=== PATIENT | female | born 1950 | race Caucasian/White ===

== ENCOUNTER 2016-08-15 10:55 | Inpatient (IN) ==
--- NOTE | 2016-08-15 11:35 | ED EKG INTERP ---
EKG Interpretation - EKG Time of EKG reading by physician:: 11:15 EKG Read and Signed by:: Jace Whitehead EKG Interpretation (*Must complete 3 of following elements*): Normal Rate: 79 Rhythm: normal sinus rhythm Comments: normal ECG Attestation - Scribe Verification/Attestation Scribe:: Tracy Medrano Acting as Scribe for:: Jace Whitehead Scribe documention review:: This chart was documented by a scribe and accurately reflects the service the provider performed and the decisions made by the provider.
--- NOTE | 2016-08-15 12:05 | PROVIDER DOCUMENTATION ---
HPI-Syncope/Dizziness - General Source: patient - History of Present Illness-Syncope/Dizzy Prior Episodes: reports: recent history Onset/Duration: reports: other (one month) Timing: reports: still present, intermittent Position/Activity at time of episode: reports: sitting, standing Symptoms prior to episode: reports: racing heart, confusion. denies: headache, lightheaded, visual disturbance, nausea/vomiting, chest pain, abdominal pain, back pain, diaphoresis, injury, recent head trauma, rapid heart beat Context: reports: almost passed out, other (dizzy). denies: lost consciousness , became unresponsive, collapsed, felt faint, confused after event, incontinent of urine, incontinent of stool, breathing shallow, breathing stopped, lost pulse , seizure activity observed, low blood sugar Loss of Consciousness: no loss of consciousness Location of injury. (If syncope resulted in an injury.): reports: none Current Symptoms: reports: chest pain, shoulder pain (bilateral), dizzy, pale. denies: fever, chills, sweaty, breathing difficulty, short of breath, abdominal pain, nausea, vomiting, arm pain, weakness, lightheaded, headache, weak pulse, headache, blurred vision, lightheaded Recently Seen Here or By Another Healthcare Provider: No - Dizziness Severity in ED: reports: mild Dizziness Related Current/Associated Symptoms: reports: dizzy, pale. denies: nausea/vomiting, weakness, lightheaded, headache, weak pulse, headache, blurred vision, lightheaded, hearing loss, ringing/roaring in ears, earache, sense of spinning, sense of falling, syncope, sense of confusion, off balance, cannot walk, cannot stand, unable to sit up, chronic dizziness Any recent trauma/injury?: reports: none Modifying Factors: improves with: nothing Patient usually:: reports: walks without assistance <Tracy Medrano - Last Filed: 08/15/16 14:31> <Jace Whitehead I - Last Filed: 08/15/16 14:41> - General Chief Complaint: Weakness Stated Complaint: SYNCOPE Time Seen by Provider: 08/15/16 11:47 Allergies/Adverse Reactions: Patient Allergies Allergy/AdvReac Type Severity Reaction Status Date / Time vitamin E (d-alpha Allergy RASH Verified 08/15/16 11:17 tocopherol) Home Medications: Home Medication List Medication Instructions Recorded Confirmed Last Taken Type Desvenlafaxine Succinate [Pristiq] 1 tab DAILY 08/15/16 08/15/16 Unknown History Estrogens, Conjugated [Premarin] 0.625 mg PO DAILY 08/15/16 08/15/16 Unknown History Glyburide/Metformin HCl 1 tab BID 08/15/16 08/15/16 Unknown History [Glyburide-Metformin 5-500 mg] Meclizine HCl [Antivert] 25 mg PRN 08/15/16 Unknown History Pravastatin Sodium 40 mg DAILY 08/15/16 08/15/16 Unknown History Telmisartan/Hydrochlorothiazid 1 tab DAILY 08/15/16 08/15/16 Unknown History [Micardis Hct 80-12.5 mg Tablet] - History of Present Illness-Syncope/Dizzy Nature of Presenting Problem: Pt is 65 y/o F presents to the ED with dizziness. Pt states having symptoms for one month. Pt states recently seeing PCP. Pt states PCP prescribed Pt with meds for dizziness. Pt states the meds help sometimes. Pt states when she sits down from being dizzy she feels like her heart is racing. Pt states hx of HTN. (Tracy Medrano) Review of Systems - Adult - REVIEW OF SYSTEMS - ADULT Constitutional: denies: chills, fever Eyes: denies: blurred vision, double vision Ears, Nose, Mouth & Throat: denies: ear pain, nose pain, throat pain Cardiovascular: reports: chest pain. denies: heart murmur, irregular heart rate Respiratory: denies: cough, shortness of breath, wheezing Gastrointestinal: denies: abdominal pain, diarrhea, nausea, vomiting Genitourinary: denies: dysuria, hematuria Musculoskeletal: reports: other (bilateral shoulder pain). denies: bone pain, joint pain, neck pain Integumentary: denies: hives, itching Neurological: reports: dizziness/vertigo (dizziness), slurred speech. denies: headache/migraines, syncope Psychiatric: reports: no symptoms reported Endocrine: reports: no symptoms reported Hematologic/Lymphatic: reports: no symptoms reported Allergic/Immunologic: reports: no symptoms reported All Other Systems: Reviewed and Negative <Tracy Medrano - Last Filed: 08/15/16 14:31> Past History - Adult - PAST MEDICAL HISTORY-ADULT Review of Records: reports: Nursing Assessment Review, Medications Reviewed, Social history reviewed & non-contributory. Major Childhood Illnesses: reports: denies history Cardiovascular: reports: HTN, hyperlipidemia Respiratory: reports: denies history Gastrointestinal: reports: denies history Obstetrical/Gynecological: reports: denies history Genitourinary: reports: denies history Musculoskeletal: reports: denies history Neurological: reports: denies history Psychiatric: reports: depression Endocrine/Immune: reports: Diabetes Other Conditions: reports: denies history - PRIOR SURGERIES/PROCEDURES Surgical/Procedure History: reports: hysterectomy, joint replacement (total knee ) - IMMUNIZATION STATUS Childhood Immunizations: See Nurse Assessment Flu Vaccine: See Nurse Assessment - FAMILY HISTORY Family History: reviewed, not pertinent - SOCIAL HISTORY Smoking: denies Substance Use: denies Living Situation: family <Tracy Medrano - Last Filed: 08/15/16 14:31> Physical Exam-General - PHYSICAL EXAM-ADULT Initial Vital Signs Reviewed: Yes - CONSTITUTIONAL General Appearance: alert, no apparent distress. negative: appears well (ill in appearance) - EYES Eyes: PERRL/EOMI, fundi clear, no AV nicking, pale conjunctivae - HEAD, EARS, NOSE, MOUTH & THROAT HENMT: normocephalic/atraumatic, moist mucous membranes, normal ENT inspection, TMs normal, pharynx normal - NECK Neck: non-tender, full range of motion, supple, normal inspection - RESPIRATORY Respiratory: chest non-tender, lungs clear, normal breath sounds, no pleuratic chest pain, no respiratory distress, no accessory muscle use - CARDIOVASCULAR Cardiovascular: normal peripheral pulses, regular rate, rhythm, no edema, no gallop, no JVD, no murmur - GASTROINTESTINAL (ABDOMEN) Abdominal Exam: normal bowel sounds, non tender, soft, no organomegaly, no pulsatile mass - LYMPHATIC Lymphatic: no adenopathy - MUSCULOSKELETAL Back Exam: normal inspection, no CVA tenderness, no vertebral tenderness Extremity: normal range of motion, non-tender, normal gait, normal inspection, no pedal edema, no calf tenderness, normal capillary refill, pelvis stable - SKIN Integumentary: normal turgor, warm/dry, pallor - NEUROLOGIC Neurologic: grossly normal, no motor/sensory deficits - PSYCHIATRIC Psych/Mental Status: normal mood/affect, oriented x 3 <Tracy Medrano - Last Filed: 08/15/16 14:31> Progress - REASSESSMENT Reassessment #1 Time Reassessed: 13:16 (Dr. Whitehead at bedside with Pt and Pt's family ) Status: unchanged (Dr. Whitehead talks to the Pt and Pt's family about Pt's labs and tells Pt about being admitted. Pt and Pt's family understands and agrees with the choice to admit.) - CONSULTS/PCP/HOSPITALIST Notification #1 *Consult/PCP/Hospitalist*: Dr. Jernigan Time Discussed: 14:11 (transfer to [facility] and admit through [facility] hospitalist ) Reason/Comments: Dr. Whitehead consults with Dr. Jernigan about Pt. Consult Disposition: other #2 Consult: Dr. Sainz Time Discussed: 14:32 (Dr. Sainz accepted admit of Pt ) Reason/Comments: Dr. Whitehead consults with Dr. Sainz about admit of Pt Consult Disposition: Admit <Tracy Medrano - Last Filed: 08/15/16 14:31> <Jace Whitehead I - Last Filed: 08/15/16 14:41> - PLAN OF CARE/RESULTS Progress/Plan/Lab Results: Orders Category Date Time Status Cardiac Monitoring DIRECTED Care 08/15/16 11:24 Active Oxygen Therapy- ED Nursing DIRECTED Care 08/15/16 11:24 Active Saline Loc NOW Care 08/15/16 11:24 Active CBC WITH ELECTRONIC DIFF [HEME] Stat Lab 08/15/16 11:24 Ordered CK PROFILE [SP CHEM] Stat Lab 08/15/16 11:24 Ordered COMPREHENSIVE METABOLIC PANEL [CHEM] Stat Lab 08/15/16 11:24 Ordered MAGNESIUM [CHEM] Stat Lab 08/15/16 11:24 Ordered PRO B-NATRIURETIC PEPTIDE Stat Lab 08/15/16 11:[address]IME WITH INR [address] [COAG] Stat Lab 08/15/16 11:[address] [COAG] Stat Lab 08/15/16 11:24 Ordered TROPONIN T Stat Lab 08/15/16 11:24 Ordered EKG [EKG] Stat Ther 08/15/16 11:24 Ordered Vital Signs - 24 hr 08/15/16 11:09 Temperature 97.5 F L Pulse Rate 94 H Respiratory 18 Rate Blood Pressure 123/65 O2 Sat by Pulse 98 Oximetry Laboratory Tests 08/15/16 08/15/16 08/15/16 12:05 12:05 12:05 WBC 1.92 L RBC 1.92 L Hgb 6.8 L Hct 20.2 L MCV 105.2 H MCH 35.4 H MCHC 33.7 RDW Std Deviation 15.7 H Plt Count 19 L* MPV 10.7 H Immature Gran % (Auto) 1.6 H Neut % (Auto) 13.6 L Lymph % (Auto) 70.8 H Terrell % (Auto) 13.0 H Eos % (Auto) 0.5 Baso % (Auto) 0.5 Immature Gran # (Auto) 0.03 Neut # (Auto) 0.26 L* Lymph # (Auto) 1.36 Terrell # (Auto) 0.25 Eos # (Auto) 0.01 Baso # (Auto) 0.01 PT INR APTT (Factor Assay) Sodium 134 L Potassium 4.2 Chloride 100 Carbon Dioxide 21 L Anion Gap 13 BUN 29 H Creatinine 1.3 H Estimated GFR/1.73 m2 41 BUN/Creatinine Ratio 22 Glucose 147 H Calculated Osmolality 277 Calcium 8.8 Magnesium 1.9 Total Bilirubin 0.40 AST 10 ALT 9 L Alkaline Phosphatase 105 H Creatine Kinase 65 Troponin T < 0.010 Total Protein 7.1 Albumin 3.9 Globulin 3.0 Albumin/Globulin Ratio 1.0 08/15/16 12:05 WBC RBC Hgb Hct MCV MCH MCHC RDW Std Deviation Plt Count MPV Immature Gran % (Auto) Neut % (Auto) Lymph % (Auto) Terrell % (Auto) Eos % (Auto) Baso % (Auto) Immature Gran # (Auto) Neut # (Auto) Lymph # (Auto) Terrell # (Auto) Eos # (Auto) Baso # (Auto) PT 13.8 INR 1.03 APTT (Factor Assay) 30.6 Sodium Potassium Chloride Carbon Dioxide Anion Gap BUN Creatinine Estimated GFR/1.73 m2 BUN/Creatinine Ratio Glucose Calculated Osmolality Calcium Magnesium Total Bilirubin AST ALT Alkaline Phosphatase Creatine Kinase Troponin T Total Protein Albumin Globulin Albumin/Globulin Ratio (Tracy Medrano) [address] Caban and Dr. Jernigan, who have accepted patient for transfer. (Jace Whitehead I) Departure <Tracy Medrano - Last Filed: 08/15/16 14:31> - Departure Time of Disposition Order: 14:40 Certified Medical Emergency: Emergent <Jace Whitehead I - Last Filed: 08/15/16 14:41> - Departure DIAGNOSIS: Pancytopenia Disposition: [facility] 02 Condition: Stable Referrals: Karthik Rojas MD [Primary Care Provider] - Attestation - Scribe Verification/Attestation Scribe:: Tracy Medrano Acting as Scribe for:: Jace Whitehead Scribe documention review:: This chart was documented by a scribe and accurately reflects the service the provider performed and the decisions made by the provider. <Tracy Medrano - Last Filed: 08/15/16 14:31> - Scribe Verification/Attestation Scribe:: Jace Whitehead I Scribe documention review:: This chart was documented by a scribe and accurately reflects the service the provider performed and the decisions made by the provider. - Physician/ ZACK Attestation Patient care was provided by Advanced Practice Provider:: Yes Advanced Practice Provider documentation review:: The Mid-level provider documentation, treatment plan and medical decision making was reviewed by the physician who agrees with all treatment and medical decision making by the MLP. The physician spent face to face time with patient:: Yes Advanced Practice Provider documentation review:: The physician spent face to face time with this patient and agrees with all MLP documentation, treatment, and medical decision making by the MLP. See provider notes for further information. <Jace Whitehead I - Last Filed: 08/15/16 14:41> Physician Attestation - Physician Attestation I, the provider, attest to the following statement:: Jace Whitehead Physician documentation Attestation:: This documentation recorded by the scribe accurately reflects the service I personally performed and the decisions made by me. <Jace Whitehead I - Last Filed: 08/15/16 14:41>
--- NOTE | 2016-08-15 12:23 | EKG Report ---
Test Performed on : 08/15/2016 11:15:44 AM Test Reason : CHEST PAIN Blood Pressure : / mmHG Vent. Rate : 079 BPM Atrial Rate : 079 BPM P-R Int : 164 ms QRS Dur : 088 ms QT Int : 422 ms P-R-T Axes : 049 -11 017 degrees QTc Int : 483 ms Normal sinus rhythm. Normal ECG No previous ECGs available Unconfirmed Result
[2016-08-15 12:36] LABS: BASO% 0.5 % (0.0-0.8); EOS# 0.01 X1000 (0.0-0.7); EOS% 0.5 % (0.0-10.0); HEMATOCRIT 20.2 % (37.0-47.0); HEMOGLOBIN 6.8 g/dL (12.0-16.0); IMM GRAN# 0.03 X1000 (0.0-0.04); IMM GRAN% 1.6 % (0.0-0.5); LYMPH# 1.36 X1000 (1.2-3.4); LYMPH% 70.8 % (20.5-51.1); MANUAL DIFF NEEDED? YES; MCH 35.4 PG (27-31); MCHC 33.7 g/dL (33-37); MCV 105.2 FL (81-99); MONO# 0.25 X1000 (0.11-0.59); MPV 10.7 FL (7.4-10.4); RBC 1.92 XMIL (4.2-5.4)
[2016-08-15 12:37] LABS: NEUT% 13.6 % (42.2-75.2)
[2016-08-15 12:38] LABS: PLT 19 X1000 (130-400)
[2016-08-15 12:47] LABS: ALBUMIN 3.9 g/dL (3.5-5.0); CALCIUM 8.8 mg/dL (8.8-10.2); MAGNESIUM 1.9 mg/dL (1.5-2.7); POTASSIUM 4.2 mmol/L (3.5-5.1); TOTAL BILIRUBIN 0.4 mg/dL (0.20-1.00); TOTAL PROTEIN 7.1 g/dL (6.3-8.3)
[2016-08-15 12:53] LABS: INR 1.03 (0.86-1.15); PROTIME 13.8 Seconds (12.1-15.5); PTT PL 30.6 Seconds (22.6-43.9)
[2016-08-15 13:47] LABS: LYMPHS 90 % (21-51)
[2016-08-15] MEDS ORDERED: NS 500 ML IV ONE (15:09)
[2016-08-15] MEDS ORDERED: TYLENOL PO ONE (15:09)
[2016-08-15] MEDS ORDERED: ZOFRAN IV PRN ×2 (15:21→16:47)
[2016-08-15] MEDS ORDERED: TYLENOL PO PRN (15:22)
[2016-08-15] MEDS ORDERED: NS 1,000 ML IV SCH ×2 (15:30→17:00)
[2016-08-15 15:55] LABS: IRON SATURATION 44 %; TIBC 396 ug/dL; TOTAL IRON 176 ug/dL (49-151); UNBOUND IRON 220 ug/dL (112-346)
--- NOTE | 2016-08-15 16:22 | HISTORY AND PHYSICAL ---
CHIEF COMPLAINT: Weakness and dizziness. HISTORY OF PRESENT ILLNESS: This is a 65-year-old white female with history of hypertension, diabetes, and dyslipidemia under good control, who has been having dizziness for about 1 month. She saw her PCP, who put her on Dramamine. He felt she had inner ear issues, benign positional vertigo. She was not feeling well. She has palpitations when her dizziness episodes occur. She had a significant one yesterday. She had no khai syncope, but she has had several episodes of presyncope. She came in for evaluation today, was found to be fairly pancytopenic and was admitted for treatment. PAST MEDICAL HISTORY: 1. Anxiety disorder. 2. Hypertension. 3. Diabetes. 4. Dyslipidemia. PAST SURGERY HISTORY: 1. She has had a couple percutaneous coronary interventions which were negative, although she has had a false-positive stress test. 2. Right TKA 3. Hysterectomy. 4. Bladder tack "suspension surgery." FAMILY HISTORY: Positive for diabetes, and mother and father are both of CAD. SOCIAL HISTORY: No tobacco or ethanol. No recreational drug use. ALLERGIES: Vitamin E which causes skin rash. MEDICATIONS: She is on Antivert 25 p.r.n., Pristiq 1 daily, glyburide metformin 1 b.i.d., pravastatin 40 daily, estrogens 0.65 daily, telmisartan hydrochlorothiazide daily. REVIEW OF SYSTEMS: She has had a 10 pound weight loss over the last month. Positive palpitations. No nausea, vomiting, diarrhea or constipation. No bleeding. Positive bruising and positive polyuria, but that has pretty much been since she has had her issues. Other systems were reviewed and are all negative. PHYSICAL EXAMINATION: VITAL SIGNS: Blood pressure 123/65, heart rate of 94, respiratory rate 18, temperature 97.5 degrees, satting 98% on room air. GENERAL: A well-developed female in no acute distress. She is somewhat pale appearing. EYE: Pupils equally, round and reactive to light. Extraocular movements were intact. EAR/NOSE/THROAT: Exam showed moist mucous membranes. NECK: Exam is supple. No thyromegaly, no lymphadenopathy. CARDIOVASCULAR: Regular rate and rhythm. No murmurs, gallops, or rubs. PULMONARY EXAM: Bilateral breath sounds. Clear to auscultation. GI: Soft, nontender, nondistended. Bowel sounds are positive. There was some fullness on the left side, possible splenomegaly on that, and did not appreciate hepatomegaly. EXTREMITIES: No clubbing or cyanosis. LYMPHATICS: No peripheral edema. NEUROLOGICAL: Nonfocal. Cranial nerves 2-12 were intact. MUSCULOSKELETAL: Was 5/5 in all four extremities. LABORATORY DATA: 1. White count 1.9 with a neutrophil count of 13%, which was augmented. Mostly lymphocytes. Hemoglobin and hematocrit 6.8 and 20. Platelet count of 19,000. 2. Coagulations were normal. 3. Chemistries were creatinine of 1.3, otherwise unremarkable. PROBLEM LIST: 1. This 65-year-old female with acute-onset pancytopenia, unknown etiology. She came in for evaluation. We will go ahead and transfuse 2 units. We have consulted Dr. Jernigan. We will evaluate for autoimmune causes and infectious causes and vitamin deficiency causes with B 12, folate. We will also evaluate for obviously primary hematological issues such as leukemoid processes. She will likely need a bone marrow transplant. This will be coordinated at [facility]. We will plan to transfer to [facility] for hematological evaluation, bone marrow biopsy and further treatment as necessary. This has been discussed with Dr. Jerniagn and Dr. Sainz who will be accepting. We will pursue abdominal ultrasound to evaluate for hepatosplenomegaly and follow clinically. 2. Hypertension. Continue her regular medications. 3. Diabetes. We will continue to monitor. Check an A1c in the morning and follow clinically.
--- NOTE | 2016-08-15 16:33 | Diag Imaging Result Document ---
PROCEDURE NAME: US ABDOMEN-COMPLETE - 08/15/2016 ULTRASOUND ABDOMEN COMPLETE: INDICATION: Abdomen pain. FINDINGS: The abdominal aorta and IVC are unremarkable. The liver appears normal in size and echotexture. No focal masses are demonstrated. There are multiple mobile hyperechoic foci within the gallbladder with shadowing consistent with cholelithiasis. The largest measures 2.3 cm. No sonographic Bishop's sign was elicited by the supervisor [employer]. The common bile duct measures 6 mm. The kidneys and spleen are unremarkable. There is no gallbladder wall thickening or pericholecystic fluid. IMPRESSION: Cholelithiasis.
[2016-08-15 16:51] LABS: RETIC% 0.76 % (0.8-2.1); RETIC-HE 39.9 PG (28.2-36.6)
[2016-08-15] MEDS: HUMULIN R SUBQ SCH ×2 (21:14→23:14)
[2016-08-15] MEDS: PRAVACHOL PO SCH (21:15)
[2016-08-16] MEDS: HUMULIN R SUBQ SCH ×3 (06:48→16:02)
[2016-08-16 07:42] LABS: CALCIUM 8.5 mg/dL (8.8-10.2); POTASSIUM 4.4 mmol/L (3.5-5.1)
[2016-08-16 07:58] LABS: HEMATOCRIT 27.1 % (37.0-47.0); HEMOGLOBIN 9.2 g/dL (12.0-16.0); MCH 34.1 PG (27-31); MCHC 33.9 g/dL (33-37); MCV 100.4 FL (81-99); MPV 11.7 FL (7.4-10.4); RBC 2.7 XMIL (4.2-5.4)
--- NOTE | 2016-08-16 11:03 | PROGRESS NOTE ---
DATE: 08/16/2016 SUBJECTIVE: Ms. Teresa August was transferred from [place] here yesterday for higher care. According to her, she has been having this dizziness, generalized fatigue, and tiredness for about a month. According to her, prior to this she did have an episode of what seems to be upper respiratory tract infection and intermittently she has also been having some nose bleeds. However, yesterday she felt extremely more weak so she presented to the emergency department where she was evaluated and was found to be severely pancytopenic, so she was transferred here for hematology/oncology evaluation. Of note, patient saw her PCP, Dr. Rojas, about 2 weeks ago. She was given some ear drops with the thought that her dizziness was due to an inner ear disease. This morning, Ms. August refers to be doing a whole lot better. She feels a lot stronger than before and this is after she received 2 PRBC transfusion last night. She denies any fever and no excessive sweat. She also says her appetite is relatively okay. She is lost, however, about 10 pounds in the last 1 week and according to her, it is intentional. Of note, Ms. August is not taking any [id number] medications and is not on any herbal medications. She has a history of hypertension, diabetes, and a family history significant for coronary artery disease but no cancer. OBJECTIVE: Vital signs: This morning blood pressure is 125/54, pulse of 75, respirations 15, temperature 97.9 degrees. General: Ms. August is a 65-year-old female, well nourished. She was in bed. Did not seem to be in any distress. HEENT: Mucosa is pink and moist. Anicteric. Acyanotic. Neck: Supple. Chest: Good air entry bilateral. No crepitations. No rhonchi. Cardiovascular: Regular rate and rhythm. No murmurs. No rubs. No gallops. Abdomen: Soft. Slightly distended but nontender. Bowel sounds are present. I did not appreciate any hepatosplenomegaly. Extremities: No pedal edema. Skin: There are no petechiae. No ecchymosis. Gums do not show any signs of active bleeding. LABORATORY DATA: WBC is 2.15, hemoglobin is up to 9.2 but this is after blood transfusion, platelet count is 16,000. Reticulocyte count is 0.67 which is ridiculously low for the level of anemia. Chemistry reviewed. Creatinine is 1.3; slightly better than yesterday. Folate is 6.00 which is low. IMAGING STUDIES: An abdominal ultrasound was done which shows cholelithiasis. Liver appears normal. There was no mention of the spleen. ASSESSMENT: 1. Pancytopenia. Etiology is not clear at this point. It could be anything. Patient is pending a bone marrow biopsy this morning. 2. Near syncope at home. I think this is due to the significant anemia that the patient did have. She is doing a whole lot better. She does not have any more dizziness or near syncopal episode after the blood transfusions. 3. Severe thrombocytopenia which I think is all part of the acute medical presentation. The patient does not have any bleeding at all. She is pending a bone marrow biopsy. However, we waiting for hematology/oncology evaluation to see if they think the patient needs to be transfused before the procedure. 4. Hypoproliferative bone marrow state. Reticulocyte count is ridiculously low for the level of anemia. This is concerning for pathologies like aplastic anemia versus myelodysplastic syndrome. We will, however, wait on the bone marrow biopsy and on hematology/oncology evaluation to give further recommendations. 5. Hypertension, controlled. 6. Diabetes mellitus, controlled. 7. Acute kidney injury, improved. 8. Folate deficiency. We will continue replacing her folate necessities.
[2016-08-16] MEDS: GLUCOVANCE 5-500 MG TABLET PO SCH ×3 (15:56→18:52)
[2016-08-16] MEDS: FOLIC ACID PO SCH ×2 (15:57→20:41)
[2016-08-16] MEDS: PRISTIQ ER PO SCH (16:02)
[2016-08-16] MEDS: ATIVAN PO SCH (20:41)
[2016-08-16] MEDS: PRAVACHOL PO SCH (20:42)
[2016-08-17] MEDS ORDERED: NS 500 ML ONE (01:09)
[2016-08-17 07:00] LABS: BASO% 0.5 % (0.0-0.8); EOS# 0.01 X1000 (0.0-0.7); EOS% 0.5 % (0.0-10.0); HEMATOCRIT 25.1 % (37.0-47.0); HEMOGLOBIN 8.5 g/dL (12.0-16.0); LYMPH# 1.33 X1000 (1.2-3.4); LYMPH% 72.7 % (20.5-51.1); MANUAL DIFF NEEDED? YES; MCH 33.9 PG (27-31); MCHC 33.9 g/dL (33-37); MONO# 0.24 X1000 (0.11-0.59); MONO% 13.1 % (1.7-9.3); MPV 9.4 FL (7.4-10.4); NEUT% 13.2 % (42.2-75.2); PLT 57 X1000 (130-400); RBC 2.51 XMIL (4.2-5.4)
[2016-08-17 07:23] LABS: CALCIUM 8.3 mg/dL (8.8-10.2); POTASSIUM 4.4 mmol/L (3.5-5.1)
[2016-08-17 07:26] LABS: FREE T4 1.11 ng/dL (0.93-1.70)
[2016-08-17 07:35] LABS: BANDS 5 % (0-1); LYMPHS 60 % (21-51)
[2016-08-17] MEDS: HUMULIN R SUBQ SCH ×3 (07:39→16:23)
[2016-08-17] MEDS ORDERED: SENSORCAINE-MPF 0.5%/EPI 1:200,000 ONE (09:01)
[2016-08-17] MEDS ORDERED: SENSORCAINE-MPF 0.5%/EPI 1:200,000 INJ ONE ×2 (09:30→09:43)
[2016-08-17 10:13] LABS: FLOW CYTOMETERY SOURCE BONE MARROW; LEUKEMIA LYMPHOMA BY FLOW REFERRED FOR TESTING
[2016-08-17] MEDS: GLUCOVANCE 5-500 MG TABLET PO SCH (10:26)
[2016-08-17] MEDS: PRISTIQ ER PO SCH (10:33)
[2016-08-17] MEDS: FOLIC ACID PO SCH ×2 (10:33→22:05)
[2016-08-17] MEDS: TYLENOL PO PRN ×2 (10:33→16:49)
[2016-08-17] MEDS ORDERED: EXTENSION SET 32 IN 4522 ONE (10:34)
[2016-08-17] MEDS ORDERED: XYLOCAINE-MPF 2% ONE (10:34)
[2016-08-17] MEDS ORDERED: ANESTHESIA PB SET 88 IN 5742 ONE (10:34)
[2016-08-17] MEDS ORDERED: LR 1,000 ML ONE (10:34)
[2016-08-17] MEDS ORDERED: DIPRIVAN 1% ONE (10:36)
--- NOTE | 2016-08-17 17:05 | PROGRESS NOTE ---
DATE: 08/17/2016 SUBJECTIVE: I went early on to see Ms. August but she had gone for the bone marrow. Later on this afternoon I went in. According to her, she is doing extremely fine and does not have any more dizziness since she got the blood transfusion. Of note she however says she does have a little bit of headaches every now and then but Tylenol relieves the headaches. OBJECTIVE: Vital signs: Blood pressure is 115/51, pulse of 75, respirations 20, temperature is 97.8 degrees. General: Ms. August 65-year-old female. She is in bed, does not seem to be in any distress. HEENT: Mucosa is pink and moist. Anicteric. Acyanotic. Neck: Supple. Chest: Clear. Cardiovascular: Regular rate and rhythm. No murmurs, no rubs. No gallops. Abdomen: Soft. Extremities: No pedal edema. MESSENGER FLOORPERSON: Patient is alert and oriented x4. There is no focal neurological deficit. Skin: There are no petechiae, no ecchymoses. Gums have no signs of active bleeding. LABORATORY DATA: CBC is reviewed. WBC is down to 1.83, hemoglobin is 8.5, platelet count went up to 57,000. This is after transfusion. The peripheral smear has about 60% of lymphocytes. ASSESSMENT: 1. Pancytopenia. Etiology is not clear. Patient is status post bone marrow biopsy. We are still pending the pathology report. Near syncope at home related to the degree of anemia. This has resolved after the blood transfusion. 1. Severe thrombocytopenia. The patient had a pack of platelets transfused yesterday. Platelet count came up to 57,000 this morning. We would continue observing this. 2. Hypoproliferative bone marrow state. The reticulocyte count is low for the level of anemia. I think this is probably related to the underlying disease which we will get more answers today with the biopsy. 3. Hypertension controlled. 4. Diabetes mellitus with A1c of 8.0. Was not very well controlled. We are going to continue with insulin therapy here in the hospital. 5. Acute kidney injury. Will continue to monitor this. 6. Folate deficiency. Patient is getting folate replacement. 7. Situational depression. Patient is on Pristiq. PLAN: So in general Ms. August seems to be doing fine. We are going to just continue monitoring her numbers with daily CBC and wait for the bone marrow biopsy which will give us some answers to what is going on with her.
[2016-08-17] MEDS ORDERED: INSULIN PEN NEEDLES ONE (17:31)
[2016-08-17] MEDS: PRAVACHOL PO SCH (22:04)
[2016-08-17] MEDS: ATIVAN PO SCH (22:05)
[2016-08-17] MEDS: LANTUS SUBQ SCH (22:06)
[2016-08-18] MEDS: HUMULIN R SUBQ SCH ×3 (06:25→18:05)
[2016-08-18 06:51] LABS: CALCIUM 9.1 mg/dL (8.8-10.2); POTASSIUM 4.8 mmol/L (3.5-5.1)
[2016-08-18 06:57] LABS: BASO% 0.4 % (0.0-0.8); EOS# 0.02 X1000 (0.0-0.7); EOS% 0.9 % (0.0-10.0); HEMATOCRIT 25.1 % (37.0-47.0); HEMOGLOBIN 8.4 g/dL (12.0-16.0); LYMPH# 1.86 X1000 (1.2-3.4); LYMPH% 79.8 % (20.5-51.1); MANUAL DIFF NEEDED? YES; MCH 33.6 PG (27-31); MCHC 33.5 g/dL (33-37); MCV 100.4 FL (81-99); MONO% 12.9 % (1.7-9.3); MPV 9.9 FL (7.4-10.4); PLT 49 X1000 (130-400)
[2016-08-18 07:16] LABS: LYMPHS 80 % (21-51); MONO 12 % (1-9)
[2016-08-18] MEDS: PRISTIQ ER PO SCH (08:43)
[2016-08-18] MEDS: FOLIC ACID PO SCH ×2 (08:43→20:50)
[2016-08-18] MEDS: GRANIX SUBQ SCH (11:14)
--- NOTE | 2016-08-18 14:56 | PROGRESS NOTE ---
DATE: 08/18/2016 SUBJECTIVE: This morning Ms. August referred to be doing fine. A little bit dizzy when she exerts herself. OBJECTIVE: Vital signs: Blood pressure is 107/51, pulse of 91, respirations 18 , temperature 97.8 degrees. General: Ms. August, 65-year-old female. She was in bed. Did not seem to be in any distress. HEENT: Mucosa is slightly pale but anicteric and acyanotic. Neck: Supple. Chest: Clear. Cardiovascular: Regular rate and rhythm. Abdomen: Soft. Extremities: No pedal edema. No ecchymosis and no petechiae. Gums have no signs of active bleeding. LABORATORY DATA: WBC is 2.33, hemoglobin is 8.4, platelet count of 49,000 and absolute neutrophil count is 186. Patient does not have any fever. ASSESSMENT: 1. Pancytopenia with hypoproliferative bone marrow state. The patient is status post bone marrow aspirate. We are pending the result. 2. Near-syncope at home related to the degree of anemia. Patient is status post 2 packed red blood cells transfusion. Hemoglobin and hematocrit is stable. 3. Severe thrombocytopenia. I think this is likely due to the underlying bone marrow insufficiency. Patient got a unit of platelet transfused. The count is relatively stable by dripping down. 4. Hypertension controlled. 5. Diabetes mellitus with A1c of 8.0. The patient is on the sliding scale and we increased glargine insulin to 15 units daily. 6. Acute kidney injury improved. 7. Folate deficiency. Will continue with replacement. 8. Situational depression. Will continue with the Pristiq. 9. Neutropenia. No fever. The patient has been evaluated by Hematology/ Oncology and they started her on Neupogen. [facility]
[2016-08-18] MEDS: TYLENOL PO PRN (15:57)
[2016-08-18] MEDS: LANTUS SUBQ SCH (20:50)
[2016-08-18] MEDS: PRAVACHOL PO SCH (20:50)
[2016-08-18] MEDS: ATIVAN PO SCH (20:50)
[2016-08-19] MEDS: HUMULIN R SUBQ SCH ×5 (06:05→21:30)
[2016-08-19] MEDS: TYLENOL PO PRN (06:18)
[2016-08-19 07:14] LABS: CALCIUM 8.1 mg/dL (8.8-10.2); POTASSIUM 4.4 mmol/L (3.5-5.1)
[2016-08-19 07:30] LABS: BASO% 0.5 % (0.0-0.8); EOS# 0.02 X1000 (0.0-0.7); HEMATOCRIT 24.6 % (37.0-47.0); HEMOGLOBIN 8.1 g/dL (12.0-16.0); LYMPH# 1.36 X1000 (1.2-3.4); LYMPH% 69.7 % (20.5-51.1); MANUAL DIFF NEEDED? YES; MCH 33.5 PG (27-31); MCHC 32.9 g/dL (33-37); MCV 101.7 FL (81-99); MONO% 15.4 % (1.7-9.3); MPV 10.1 FL (7.4-10.4); NEUT% 13.4 % (42.2-75.2); RBC 2.42 XMIL (4.2-5.4)
[2016-08-19 07:32] LABS: PLT 35 X1000 (130-400)
[2016-08-19 08:00] LABS: LYMPHS 70 % (21-51); MONO 10 % (1-9)
[2016-08-19] MEDS: FOLIC ACID PO SCH ×2 (08:42→21:33)
[2016-08-19] MEDS: PRISTIQ ER PO SCH (08:42)
[2016-08-19] MEDS: GRANIX SUBQ SCH (08:43)
--- NOTE | 2016-08-19 17:48 | PROGRESS NOTE ---
DATE: 08/19/2016 SUBJECTIVE: Today, Ms. August was sitting up in a chair. She referred to be doing a whole lot better. Occasionally, she will feel slightly dizzy when she exerts herself. OBJECTIVE: Vital signs: Blood pressure is 99/49, pulse of 98, respirations 18 , temperature 98 degrees. General: Ms. August is a 59-year-old female. She was sitting up in the chair. She did not seem to be in any distress. HEENT: Mucosa is pink and moist. Anicteric and acyanotic. Neck: Supple. Chest: Good air entry bilaterally. No crepitations. No rhonchi. Cardiovascular: Regular rate and rhythm. No murmurs, no rubs. No gallops. Abdomen: Soft, nontender. Extremities: No pedal edema. LOCATION MANAGER: Patient is alert and oriented x4. There is no focal neurological deficit. LABORATORY DATA: WBC is down to 1.95. Hemoglobin is also down to 8.1, platelet is down to 35, absolute neutrophil count is about 260. There is remarkable lymphocytosis. ASSESSMENT: 1. Pancytopenia with hypoproliferative bone marrow state. We are still pending the bone marrow biopsy. 2. Near-syncope at home related to the degree of the anemia. Patient is status post 2 packed red blood cell transfusions. 3. Severe thrombocytopenia. I think it is probably related to the bone marrow disease. The patient had a unit of platelets. The platelet count improved, but it still is now going down. 4. Neutropenia. This is slightly improving. There is no fever. The patient is getting Epogen. 5. Hypertension. Controlled. 6. Diabetes mellitus with A1c of 8. Patient is currently on insulin regimen, is improving. 7. Acute kidney injury, resolved. 8. Folate deficiency. We will continue replacing. 9. Situational depression. We will continue with Pristiq. PLAN: I think the patient is relatively stable. Her numbers are getting lower , but hemoglobin and hematocrit is not where to be transfused. She does not have an overt bleeding and she is not overly symptomatic as she was when she came in. We are going to keep track of the numbers. Hopefully, by tomorrow we will get some preliminary results on the bone marrow biopsy and then we will get some more recommendations from Heme-Oncology as to what to do. [facility]
[2016-08-19] MEDS: PRAVACHOL PO SCH (21:31)
[2016-08-19] MEDS: ATIVAN PO SCH (21:31)
[2016-08-19] MEDS: LANTUS SUBQ SCH (21:36)
[2016-08-20] MEDS: HUMULIN R SUBQ SCH ×5 (06:09→22:27)
[2016-08-20 07:49] LABS: BASO% 0.5 % (0.0-0.8); EOS# 0.01 X1000 (0.0-0.7); EOS% 0.5 % (0.0-10.0); HEMATOCRIT 25.3 % (37.0-47.0); HEMOGLOBIN 8.5 g/dL (12.0-16.0); IMM GRAN# 0.09 X1000 (0.0-0.04); IMM GRAN% 4.7 % (0.0-0.5); LYMPH# 1.18 X1000 (1.2-3.4); LYMPH% 61.8 % (20.5-51.1); MANUAL DIFF NEEDED? YES; MCHC 33.6 g/dL (33-37); MCV 101.2 FL (81-99); MONO# 0.32 X1000 (0.11-0.59); MONO% 16.8 % (1.7-9.3); MPV 10.4 FL (7.4-10.4); NEUT% 15.7 % (42.2-75.2)
[2016-08-20 07:50] LABS: PLT 30 X1000 (130-400)
[2016-08-20 07:53] LABS: CALCIUM 8.5 mg/dL (8.8-10.2); POTASSIUM 4.3 mmol/L (3.5-5.1)
[2016-08-20 08:02] LABS: BANDS 4 % (0-1); LYMPHS 80 % (21-51)
[2016-08-20] MEDS: PRISTIQ ER PO SCH (09:41)
[2016-08-20] MEDS: GRANIX SUBQ SCH (09:41)
[2016-08-20] MEDS: FOLIC ACID PO SCH ×2 (09:41→22:26)
[2016-08-20] MEDS: NS 1,000 ML IV SCH (09:52)
--- NOTE | 2016-08-20 10:59 | CONSULTATION ---
DATE OF CONSULTATION: 08/18/2016 [id number]-act female with a history of hypertension, diabetes mellitus type 2, dyslipidemia, who reports that she began having approximately one month ago. She reports her primary care provider and was placed on Dramamine. Patient reports that she continued to have and began having significant periods of palpitations yesterday. She had been prior to presentation. She did not experience syncope. did report some presyncope. She reported to [facility] Emergency Department for evaluation. Patient was found to be pancytopenic with hemoglobin of 9.2, white blood cell count of 2150, and platelet count of 16,000. We are consulted for pancytopenia. The patient did and does have complaints of mild epigastric pain and headache. PAST MEDICAL HISTORY: 1. Anxiety disorder. 2. Hypertension. 3. Diabetes mellitus type 2. 4. Dyslipidemia. PAST SURGICAL HISTORY: 1. Right total knee arthroplasty. 2. Hysterectomy. 3. Bladder tack. PERSONAL HISTORY: The patient denies any tobacco, alcohol, or illicit drug use. FAMILY HISTORY: Significant for diabetes and coronary artery disease. Negative for any MEDICATIONS ON ADMISSION: 1. Antivert. 2. 3. Glyburide/metformin. 4. . 5. Estrogen. 6. . 7. Hydrochlorothiazide. ALLERGIES: Vitamin REVIEW OF SYSTEMS: Fourteen point review of systems was obtained and is negative except for as mentioned in HPI. Patient does additionally report that she has lost 10 pounds over the last . PHYSICAL EXAMINATION: General: The patient is a 65-year-old female lying supine in bed in no apparent distress. Vital signs: Temperature 97.9, blood pressure 123/54, heart rate 75, respirations 16, oxygen saturation 99% on room air. HEENT: Normocephalic, atraumatic. Membranes are pale and moist. Sclerae anicteric. Lungs: Clear to auscultation bilaterally. Chest: Chest expansion is equal bilaterally. Cardiovascular: S1, S2 heard, without murmur, rub, or gallop. Abdomen: Soft, minimally tender in the epigastric region. Bowel sounds are . Extremities: Without clubbing, cyanosis or edema. Dermatologic: No rash Neurologic: The patient is awake, alert, and oriented x3. She has no focal motor deficit. LABORATORY DATA: ALT 1.36, AST 0.26, hemoglobin 9.2, hematocrit 27.1, white blood cell count 2.15, platelets 16,000. Sodium 140, potassium 4.4, chloride INR 1.03. Iron saturation is 44%. TIBC is 396. Bone marrow biopsy pathology currently pending. IMAGING STUDIES: Abdominal ultrasound reveals cholelithiasis. ASSESSMENT AND PLAN: 1. Pancytopenia with profound thrombocytopenia. Platelet count is currently 16,000. We will transfuse one unit of platelets at this time. We will check SPEP, TSH, DAV, folate. We will await bone marrow biopsy results and make further recommendations for treatment plan and discuss options. 2. Hypertension, which is well controlled at this time. 3. Diabetes mellitus type 2 which is currently stable. 4. Anxiety disorder which is stable. 5. Will follow along with you and make further recommendations . Dictated by YULI Foster for Alex Jernigan MD
--- NOTE | 2016-08-20 17:49 | PROGRESS NOTE ---
DATE: 08/20/2016 SUBJECTIVE: Today Ms. August refers to be doing a whole lot better. She did not actually have any complaints. No bleeding, except that she said when she washed her mouth there was a minimal bleed from her lower gum. OBJECTIVE: Vital Signs: Stable. Blood pressure is 118/46, pulse of 66, respirations 20, temperature is 97.9 degrees. General Examination: Ms. August is a 65-year-old female. She is in bed. Not distressed. HEENT: Mucosa is pink and moist. Anicteric. Acyanotic. Neck: Supple. Chest: Clear. Cardiovascular: Regular rate and rhythm. No murmurs, no rubs, no gallops. Abdomen: Soft. Extremities: No pedal edema. 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 There is no focal neurological deficit. LABORATORY DATA: WBC is down to 1.91, hemoglobin is 8.5, platelet count of 30,000. Absolute neutrophil count is 300. Chemistry is reviewed. Creatinine is 1.3. ASSESSMENT: 1. Pancytopenia with hypoproliferative bone marrow state. Bone biopsy has been done and we still pending the results. 2. Near-syncope at home. I think this was related to the degree of anemia. Patient came in with hemoglobin and hematocrit of 6.8. She got 2 PRBC transfusion and this has been relatively stable. 3. Severe thrombocytopenia, etiology is still unclear. We think is related to bone marrow process. Patient had a unit of platelet transfuse. Platelet count went up slightly but is gradually dropping and today it is at 30. We would continue to keep eye on this. Patient is not actively bleeding from anywhere. 4. Neutropenia. Patient is getting Epogen. Hematology/Oncology is on board. 5. Hypertension, is controlled. 6. Diabetes mellitus with A1c of 8 on presentation. Patient is stable on insulin regimen. 7. Folate deficiency. We will continue a replacing this. 8. Situational depression. Patient is currently on Pristiq. So, in general, Ms. August is doing a whole lot better. She came in because of dizziness and near syncope and was found to be anemic with hypoproliferative bone marrow state. A bone marrow biopsy has been done and we are pending the result. The patient has been given 2 PRBC transfusion and 1 platelet. We will continue transfusing if necessary. We will continue gentle IV hydration for the mild acute kidney injury, and we will follow up with further recommendations from Heme-Onc. Today, the patient also referred to have some little burning when she pees, so we will going to do a urinalysis with reflux culture.
[2016-08-20 20:49] LABS: URINE CULTURE NEEDED? NO; URINE MICRO REVIEW NEEDED? NO; URINE SOURCE CLEAN CATCH
[2016-08-20 20:56] LABS: BILIRUBIN URINE NEGATIVE (NEGATIVE); BLOOD URINE SMALL (NEGATIVE); COLOR YELLOW; GLUCOSE URINE NEGATIVE (NEGATIVE); LEUKOCYTES URINE SMALL (NEGATIVE); NITRITE URINE NEGATIVE (NEGATIVE); PH URINE 5.5; PROTEIN URINE TRACE mg/dL (NEGATIVE); SP GRAVITY URINE 1.019; TURBIDITY URINE CLEAR (CLEAR); UR EPITHELIAL CELLS <10 /HPF (<10); URINE BACTERIA 4+ /HPF; URINE RBC <10 /HPF (<10); UROBILINOGEN URINE NORMAL (NORMAL)
[2016-08-20] MEDS: LANTUS SUBQ SCH (22:25)
[2016-08-20] MEDS: PRAVACHOL PO SCH (22:26)
[2016-08-20] MEDS: ATIVAN PO SCH (22:26)
[2016-08-21 07:26] LABS: CALCIUM 8.5 mg/dL (8.8-10.2); POTASSIUM 4.5 mmol/L (3.5-5.1)
[2016-08-21 07:27] LABS: BASO% 0.4 % (0.0-0.8); EOS# 0.02 X1000 (0.0-0.7); EOS% 0.8 % (0.0-10.0); IMM GRAN# 0.02 X1000 (0.0-0.04); IMM GRAN% 0.8 % (0.0-0.5); LYMPH# 1.73 X1000 (1.2-3.4); MANUAL DIFF NEEDED? YES; MCH 33.6 PG (27-31); MCHC 33.3 g/dL (33-37); MCV 100.7 FL (81-99); MONO# 0.38 X1000 (0.11-0.59); MONO% 15.4 % (1.7-9.3); MPV 10.1 FL (7.4-10.4); NEUT% 12.6 % (42.2-75.2); RBC 2.68 XMIL (4.2-5.4)
[2016-08-21 07:41] LABS: PLT 16 X1000 (130-400)
[2016-08-21] MEDS: HUMULIN R SUBQ SCH ×4 (07:41→22:55)
[2016-08-21 07:58] LABS: LYMPHS 60 % (21-51); MONO 16 % (1-9)
[2016-08-21] MEDS: NS 1,000 ML IV SCH ×2 (08:34)
[2016-08-21] MEDS: GRANIX SUBQ SCH (08:34)
[2016-08-21] MEDS: TYLENOL PO PRN (08:34)
[2016-08-21] MEDS: PRISTIQ ER PO SCH (08:34)
[2016-08-21] MEDS: FOLIC ACID PO SCH ×2 (08:34→22:54)
--- NOTE | 2016-08-21 10:53 | CONSULTATION ---
DATE OF CONSULTATION: 08/16/2016 CHIEF COMPLAINT: Weakness and dizziness. HISTORY OF PRESENT ILLNESS: Ms Teresa August is a pleasant, 65-year-old female with a history of hypertension, diabetes mellitus type 2 and dyslipidemia, who reports that she began having dizziness approximately 1 month ago. The patient was placed on Dramamine by her primary care provider. However, she reports that she continued to have dizziness and began having significant periods of palpitation yesterday. The patient also reports that she was having episodes of presyncope, but had no syncope. She reported to [facility] Emergency Department for evaluation and was found to be pancytopenic with a hemoglobin of 9.2, white blood cell count of 2150, and platelet count of 16,000. We are currently consulted for pancytopenia. The patient does report significant fatigue and has complaints of mild epigastric pain and headache as well. PAST MEDICAL HISTORY: 1. Anxiety disorder. 2. Hypertension. 3. Diabetes mellitus. 4. Dyslipidemia. PAST SURGICAL HISTORY: 1. Right total knee arthroplasty. 2. Hysterectomy. 3. Bladder tack. FAMILY HISTORY: Negative for any hematologic or oncologic problem. SOCIAL HISTORY: The patient does not use tobacco, alcohol or illicit drugs. MEDICATIONS ON ADMISSION: 1. Antivert. 2. Pristiq. 3. Glyburide metformin. 4. Pravastatin. 5. Estrogens. 6. Telmisartan/hydrochlorothiazide. ALLERGIES: Vitamin E which causes skin rash. REVIEW OF SYSTEMS: A 14 point review of systems was obtained and does include a 10 pound weight loss over the last month with positive palpitations. Review of systems is otherwise negative, except for as mentioned in HPI. PHYSICAL EXAM: General: Ms Teresa August is a pleasant 65-year-old female, lying supine in bed in no apparent distress. Vital Signs: Temperature 97.9 degrees, blood pressure 123/54, heart rate 75, respirations 16, O2 saturation 99% on room air. HEENT: Normocephalic, atraumatic. Mucous membranes are pale and moist. Sclerae is anicteric. Extraocular movements intact. Neck: Supple. Lungs: Clear to auscultation bilaterally. Chest expansion is equal bilaterally. CV: S1, S2 is heard without murmur, rub or gallop. Abdomen: Soft, minimally tender in the epigastric region. Bowel sounds are positive in all quadrants. No rebound or guarding noted. Extremities: Without clubbing, cyanosis, or edema. Dermatologic: No rash, bruises or lesions. Neurologic: The patient is awake, alert, and oriented x3. She has no focal motor deficits. LABORATORY DATA: ALC 1.36, ANC 0.26. Hemoglobin 9.2, hematocrit 27.1, white blood cell count is 2.15, platelets 16. Sodium 140, potassium 4.4, chloride 103, CO2 is 21, BUN 26, creatinine 1.1, glucose 165, calcium is 8.5. ESR is 118%, reticulocyte count is 0.76, RHE is 39.9, INR 1.03, iron saturation is 44, TIBC is 396. Bone marrow biopsy: Pathology is currently pending. IMAGING STUDIES: Abdominal ultrasound reveals cholelithiasis. EKG is normal. ASSESSMENT AND PLAN: 1. Pancytopenia with profound thrombocytopenia. Platelet count is currently 16,000. The patient denies any bleeding at this time. She does report multiple bruises. We will transfuse 1 unit of platelets at this time. We will check an S-PEP, TSH, DAV and folate. Will await bone marrow biopsy results and make further recommendations for treatment plan and discuss options after diagnostics are completed. 2. Hypertension, which is well controlled at this time. 3. Diabetes mellitus type 2, which is currently stable. 4. Anxiety disorder, currently stable. 5. We will follow along with you and make further recommendations pending outcomes. The above reflects the history, exam, assessment and plan of Dr. Jernigan. Dictated by YULI Foster for Alex Jernigan MD
--- NOTE | 2016-08-21 18:31 | PROGRESS NOTE ---
DATE: 08/21/2016 She presented on 08/13/2016 with weakness and dizziness. 65-year-old white female, history of hypertension, diabetes, dyslipidemia under good control. Had been having dizziness for about a month. Saw her primary care physician. Put her on Dramamine. She was thought to have inner ear issues, benign positional vertigo. She was not feeling well. Seemed the dizziness seemed to get worse. She had a significant one event the day before admission. She had no khai syncope but she had several episodes of presyncope. Came for evaluation in the emergency room and had found pancytopenia. Was admitted for treatment. PAST MEDICAL HISTORY: Anxiety disorder, hypertension, diabetes, hyperlipidemia. PAST SURGICAL HISTORY: 1. She has had a couple cutaneous coronary interventions which were negative although she has had a false-positive stress test. 2. Right total knee arthroplasty. 3. Hysterectomy. 4. Bladder tack for suspension. She was admitted with pancytopenia of unknown etiology. They did give her 2 units of packed red blood cells. Dr. Jernigan was consulted. He felt that when she came in, hemoglobin was 9.2, white blood cell count was 2150, platelet count 16,000, felt pancytopenia, profound thrombocytopenia. Platelet counts currently were 16,000. Transfuse 1 unit of platelets at that time and check SPEP, TSH, DAV, folate and then obtain a bone marrow biopsy. Blood sugars have been followed. Today she felt a little stronger. Daughter felt she is doing a little better as well. Temperature 98.0 degrees, pulse 87, respirations 24 and blood pressure 124/50. CVP less than 6 cm.Lungs: Clear in all lung moore. Cardiovascular: Regular rhythm and rate without murmur or S3. Good urine output, 900 mL. LAB: White count 2470, hematocrit 27, platelet count 16,000. Chemistries from today: Sodium 138, potassium 4.5, chloride 104, BUN 25, creatinine 1.1. Blood sugars have been 126, 129, 204, 158. ASSESSMENT AND PLAN: 1. Pancytopenia with profound thrombocytopenia. Await on bone marrow biopsy and lab. 2. Hypertension. 3. Diabetes mellitus type 2. 4. Anxiety disorder. Review of her orders: She is getting Granix 480 mcg subcutaneous daily. Normal saline at 75 mL an hour. Getting insulin, Lantus 15 units subcutaneously at bedtime, Ativan 0.25 mg at bedtime, folic acid 1 mg b.i.d., pravastatin 40 mg q.p.m.
[2016-08-21] MEDS: ATIVAN PO SCH (22:54)
[2016-08-21] MEDS: PRAVACHOL PO SCH (22:54)
[2016-08-21] MEDS: LANTUS SUBQ SCH (22:55)
[2016-08-22] MEDS: TYLENOL PO PRN (06:42)
[2016-08-22] MEDS: HUMULIN R SUBQ SCH ×4 (06:43→21:15)
[2016-08-22 07:05] LABS: BASO% 0.4 % (0.0-0.8); EOS# 0.01 X1000 (0.0-0.7); EOS% 0.4 % (0.0-10.0); HEMATOCRIT 23.7 % (37.0-47.0); HEMOGLOBIN 7.7 g/dL (12.0-16.0); IMM GRAN# 0.02 X1000 (0.0-0.04); IMM GRAN% 0.8 % (0.0-0.5); LYMPH# 1.67 X1000 (1.2-3.4); LYMPH% 65.2 % (20.5-51.1); MANUAL DIFF NEEDED? YES; MCH 32.9 PG (27-31); MCHC 32.5 g/dL (33-37); MCV 101.3 FL (81-99); MONO% 19.5 % (1.7-9.3); MPV 9.4 FL (7.4-10.4); NEUT% 13.7 % (42.2-75.2); PLT 57 X1000 (130-400); RBC 2.34 XMIL (4.2-5.4)
[2016-08-22 07:31] LABS: LYMPHS 70 % (21-51); MONO 2 % (1-9)
[2016-08-22] MEDS: GRANIX SUBQ SCH (10:28)
[2016-08-22] MEDS: PRISTIQ ER PO SCH (10:28)
[2016-08-22] MEDS: FOLIC ACID PO SCH ×2 (10:28→21:15)
[2016-08-22] MEDS: NS 1,000 ML IV SCH ×2 (13:36→18:56)
--- NOTE | 2016-08-22 16:22 | PROGRESS NOTE ---
DATE: 08/22/2016 SUBJECTIVE: Ms. August says she feels better. Her strength is still poor, but she is eating well. No pain. Breathing comfortably. OBJECTIVE: Vital Signs: Temperature 98.1 degrees, pulse 78, respirations 20, blood pressure 99/48. HEENT and Neck: The pupils are equal and round. CVP less than 6 cm. Lungs: Clear in all lung moore. Cardiovascular: Regular rhythm and rate without murmur or S3. Urine Output: 980 mL. LABORATORY DATA: White count 2560, hematocrit 23, hemoglobin 7.7, platelet count of 57,000. I reviewed electrolytes from yesterday. Creatinine 1.1. Blood sugars 204, 158, 260 and 140. ASSESSMENT AND PLAN: 1. Pancytopenia with profound thrombocytopenia. We are still waiting on bone marrow results. She does report multiple bruises. We will transfuse 1 unit of platelets at this time. Awaiting SPEP, DAV, folate level, TSH, and bone marrow biopsy results. Note that her folate was 6, which is a little low. T4 and TSH looked okay. B12 was 579. DAV screen was negative, and leukocyte-lymphocyte flow cytology is not back yet. 2. General strength is about the same. 3. Blood pressure is controlled. 4. Blood sugars followed for diabetes mellitus type 2. 5. Anxiety. She seems to understand the plan of treatment and awaiting results. I think the plan is to try and maybe go to [place], discuss with the team.
[2016-08-22] MEDS: PRAVACHOL PO SCH (21:14)
[2016-08-22] MEDS: ATIVAN PO SCH (21:14)
[2016-08-22] MEDS: LANTUS SUBQ SCH (21:15)
[2016-08-23] MEDS: NS 1,000 ML IV SCH ×3 (01:08→17:31)
[2016-08-23] MEDS: TYLENOL PO PRN ×2 (01:08→11:51)
[2016-08-23] MEDS: HUMULIN R SUBQ SCH ×4 (06:32→22:15)
[2016-08-23] MEDS: FOLIC ACID PO SCH ×2 (08:03→22:15)
[2016-08-23] MEDS: GRANIX SUBQ SCH (08:03)
[2016-08-23] MEDS: PRISTIQ ER PO SCH (08:03)
[2016-08-23 09:37] LABS: ALBUMIN 3.6 g/dL (3.5-5.0); BASO% 0.3 % (0.0-0.8); CALCIUM 8.7 mg/dL (8.8-10.2); EOS# 0.01 X1000 (0.0-0.7); EOS% 0.3 % (0.0-10.0); HEMATOCRIT 30.8 % (37.0-47.0); HEMOGLOBIN 10.6 g/dL (12.0-16.0); IMM GRAN# 0.02 X1000 (0.0-0.04); IMM GRAN% 0.7 % (0.0-0.5); LYMPH# 1.79 X1000 (1.2-3.4); LYMPH% 60.7 % (20.5-51.1); MAGNESIUM 1.9 mg/dL (1.5-2.7); MANUAL DIFF NEEDED? YES; MCH 33.2 PG (27-31); MCHC 34.4 g/dL (33-37); MCV 96.6 FL (81-99); MONO# 0.71 X1000 (0.11-0.59); MONO% 24.1 % (1.7-9.3); MPV 9.9 FL (7.4-10.4); NEUT% 13.9 % (42.2-75.2); PLT 49 X1000 (130-400); POTASSIUM 4.8 mmol/L (3.5-5.1); RBC 3.19 XMIL (4.2-5.4); TOTAL BILIRUBIN 0.91 mg/dL (0.20-1.00); TOTAL PROTEIN 6.9 g/dL (6.3-8.3)
[2016-08-23 09:41] LABS: LYMPHS 84 % (21-51)
--- NOTE | 2016-08-23 14:01 | PROGRESS NOTE ---
DATE: 08/23/2016 SUBJECTIVE: Ms. August is feeling better. We are awaiting the results of her bone marrow test and to make some decisions about therapy. She is eating well and getting a little stronger. She is breathing comfortably. OBJECTIVE: Vital Signs: Afebrile. Temperature is 97.9, pulse 70, respirations 20, and blood pressure 126/71. HEENT: Pupils are equal and round. Neck: CVP less than 6 cm. Lungs: Clear in all lung moore. Cardiovascular: Regular rhythm and rate without murmur or S3. Abdomen: Soft. Skin: Warm and dry. Blood sugars: 165, 116, and 183. CBC: White blood cell count is 2,950, hematocrit 30, platelet count 49,000, sodium 140, potassium 4.8, chloride 105, bicarb 20, BUN 24, and creatinine 1.1. Blood sugars: 165, 217, and 140. ASSESSMENT AND PLAN: 1. Pancytopenia. Awaiting bone marrow results. Profound thrombocytopenia. 2. Weakness and deconditioning which has improved. 3. Blood pressure, controlled. 4. Blood sugars are well controlled. Looking at the orders, I do not see anything different to do at this point. Normal Saline is going at 75 mL/hr. She is getting Granix 480 mcg subcutaneously daily, Lantus 15 units subcutaneously at bedtime, Folic acid 1 mg b.i.d., Pravachol 40 mg daily, and desvenlafaxine ER 50 mg p.o. daily.
[2016-08-23] MEDS: PRAVACHOL PO SCH (22:15)
[2016-08-23] MEDS: ATIVAN PO SCH (22:15)
[2016-08-23] MEDS: LANTUS SUBQ SCH (22:16)
[2016-08-24] MEDS: HUMULIN R SUBQ SCH ×2 (06:43→11:31)
[2016-08-24] MEDS: TYLENOL PO PRN (08:52)
[2016-08-24] MEDS: FOLIC ACID PO SCH (08:53)
[2016-08-24] MEDS: PRISTIQ ER PO SCH (08:53)
[2016-08-24] MEDS: GRANIX SUBQ SCH (08:53)
[2016-08-24 09:42] LABS: BASO% 0.3 % (0.0-0.8); EOS# 0.01 X1000 (0.0-0.7); EOS% 0.3 % (0.0-10.0); HEMATOCRIT 30.7 % (37.0-47.0); HEMOGLOBIN 10.4 g/dL (12.0-16.0); LYMPH# 1.64 X1000 (1.2-3.4); LYMPH% 49.5 % (20.5-51.1); MANUAL DIFF NEEDED? YES; MCH 32.9 PG (27-31); MCHC 33.9 g/dL (33-37); MCV 97.2 FL (81-99); MONO# 0.93 X1000 (0.11-0.59); MONO% 28.1 % (1.7-9.3); MPV 10.3 FL (7.4-10.4); NEUT% 21.8 % (42.2-75.2); PLT 36 X1000 (130-400); RBC 3.16 XMIL (4.2-5.4)
--- NOTE | 2016-08-24 10:02 | PROGRESS NOTE ---
DATE: 08/24/2016 SUBJECTIVE: Ms. August was sitting up. She says she gets a headache every morning, a little bit of fever and some chills, and it seems to get better during the day. I talked to Dr. Jernigan. She was diagnosed with AML. We hope to let her get out of the hospital today, this afternoon, and try to set up arrangements for treatment. OBJECTIVE: Temperature is 97.9, pulse 70, respirations 20, blood pressure 130/57. Pupils are equal and round. CVP less than 6 cm. Lungs are clear in all lung moore. Cardiovascular: Regular rate and rhythm without murmur or S3. Abdomen is soft. Skin is warm and dry. DIAGNOSTIC DATA: Blood sugars were 116, 180 and 130. I reviewed her labs from yesterday. We will check another CBC today at her request. ASSESSMENT AND PLAN: 1. Pancytopenia and acute myelocytic leukemia. Set up for outpatient treatment. 2. Weakness and deconditioning. Encourage physical therapy. 3. Blood pressure. Continue to follow. 4. Diabetes mellitus type 2. Blood sugars look good.
[2016-08-24 10:51] LABS: BANDS 2 % (0-1); LYMPHS 58 % (21-51); MONO 22 % (1-9)
--- NOTE | 2016-08-24 13:41 | DISCHARGE SUMMARY ---
ADMISSION DATE: 08/15/2016 DISCHARGE DATE: 08/24/2016 HISTORY OF PRESENT ILLNESS: This 65-year-old patient presented with weakness and dizziness with a history of hypertension, diabetes mellitus type 2, dyslipidemia. She is under good control. Complained of dizziness for about a month, saw her primary care physician and was treated for the dizziness with some Dramamine wondering about benign positional vertigo, had some palpitations and she does have a history of anxiety disorder. PAST SURGICAL HISTORY: 1. Has had a couple of percutaneous coronary interventions which were negative and she has had a false-positive stress test. 2. Right total knee arthroplasty. 3. Hysterectomy. 4. Bladder tack suspension surgery. HOSPITAL COURSE: Admitted to the hospital noted that she had a gale neutropenia with white count 1900, neutrophils 13% and platelet count 19,000, hemoglobin was 6.8, her other lab was fairly unremarkable. The workup including Dr. Jernigan general machinist-oncologist did workup eventually bone marrow and discovered that she has acute myelocytic leukemia. She is planning on getting treatment unsure where, is going to follow up with Dr. Jernigan's office. Her counts had improved enough and felt she would be better to go home. Will get home health involved. DISCHARGE MEDICATIONS: Will be on Tylenol 650 q.6 hours p.r.n., Pristiq ER 50 mg daily, Prilosec 1 mg b.i.d., she has Lantus insulin she takes subcu at bedtime, Ativan 0.5 mg at bedtime, Pravachol 40 mg q.p.m. FOLLOWUP: With Dr. Jernigan next week and make plans for her therapy. cc: Floyd Youngblood MD
[2016-08-24 16:13] VITALS: BP 140/114
[2016-08-24] MEDS ORDERED: INSULIN PEN NEEDLES ONE (16:28)
== END 2016-08-24 16:41 | disposition home or self-care (01) ==
LOC: P.ED 10:55 → P.EDIPHOLD 15:26 → 3N 16:45
PROVIDERS: ATTEND Emergency Medicine